=== PATIENT | female | born 1955 | race Caucasian/White ===

== ENCOUNTER → 2017-08-09 | Outpatient (CLI) | payer OTHER ==
[2017-08-09 11:17] LABS: AUTOMATED NEUTROPHIL # 3.4 TH/MM3 (1.8-7.7); BASOPHIL # 0.1 TH/MM3 (0-0.2); BASOPHIL % 1.2 % (0.0-2.0); EOSINOPHIL # 0.2 TH/MM3 (0-0.4); EOSINOPHIL % 3.8 % (0.0-4.0); HEMATOCRIT 37.2 % (35.0-46.0); HEMO FLAGS DIFF FINAL; HEMOGLOBIN 12.7 GM/DL (11.6-15.3); LYMPH % 30.4 % (9.0-44.0); LYMPHOCYTE # 1.8 TH/MM3 (1.0-4.8); MEAN CELL VOLUME 83.3 FL (80.0-100.0); MEAN CORPUSCULAR HEMOGLOBIN 28.4 PG (27.0-34.0); MEAN CORPUSCULAR HGB CONC 34.1 % (32.0-36.0); MEAN PLATELET VOLUME 6.7 FL (7.0-11.0); MONO % 8.2 % (0.0-8.0); MONOCYTE # 0.5 TH/MM3 (0-0.9); NEUT % 56.4 % (16.0-70.0); PLATELET COUNT 327 TH/MM3 (150-450); RED BLOOD COUNT 4.47 MIL/MM3 (4.00-5.30); RED CELL DISTRIBUTION WIDTH 13.2 % (11.6-17.2)
[2017-08-09 11:44] LABS: ALBUMIN 4.3 GM/DL (3.4-5.0); ANION GAP 6 MEQ/L (5-15); AST (GOT) 17 U/L (15-37); BACTERIA, URINE OCC /hpf; BICARBONATE 27.8 MEQ/L (21.0-32.0); BILIRUBIN, URINE NEG (NEG); BLOOD UREA NITROGEN 14 MG/DL (7-18); BLOOD, URINE NEG (NEG); CHLORIDE 103 MEQ/L (98-107); COMMENT (UR) CULT NOT INDICATED; CREATININE 0.79 MG/DL (0.50-1.00); CULTURE IF INDICATED CULT NOT INDICATED; GLOMERULAR FILTRATION RATE 74 ML/MIN (>89); GLUCOSE,FASTING 88 MG/DL (74-99); GLUCOSE,URINE NEG (NEG); KETONE, URINE NEG (NEG); MUCUS URINE FEW /lpf (OCC); NITRITE,URINE NEG (NEG); POTASSIUM 4.2 MEQ/L (3.5-5.1); SODIUM (NA) 137 MEQ/L (136-145); SQUAMOUS EPITHELIAL CELL URINE <1 /hpf (0-5); URINE COLOR LIGHT-YELLOW (YELLW/STRAW); URINE LEUKOCYTE ESTERASE NEG (NEG)
[2017-08-09 11:48] LABS: ALKALINE PHOSPHATASE 58 U/L (45-117); ALT (GPT) 30 U/L (10-53); TOTAL BILIRUBIN ADULT 0.2 MG/DL (0.2-1.0); TOTAL PROTEIN 8.2 GM/DL (6.4-8.2)
== END ==
LOC: CPRE 10:14
DX: Z01.810 Encounter for preprocedural cardiovascular examination (principal); Z01.812 Encounter for preprocedural laboratory examination; N39.3 Stress incontinence (female) (male)
CPT/HCPCS: 36415; 80053; 81001; 85025; 93005

== ENCOUNTER → 2017-08-15 | Day surgery (SDC) | payer OTHER ==
[~2017-08-15] MED LIST: ACETAMINOPHEN 1000 MG/100 ML 100 ML IV; DEXAMETHASONE SOD PHOS 4 MG/ML VIAL IV; DO NOT ADM ANY ANTICOAGULANT DRUGS; GLYCOPYRROLATE 1 MG/5 ML SYRINGE IV PUSH; KETOROLAC TROMETHAMINE 30 MG/ML (IVP) VIAL IV PUSH; LACTATED RINGER'S 1000 ML INJ 1,000 ML IV; LIDOCAINE HCL 1% PF 5 ML SYRINGE OTHER; METOPROLOL TARTRATE 25 MG TAB PO; MIDAZOLAM HCL 2 MG/2 ML VIAL; NEOSTIGMINE 5 MG/5 ML SYRINGE IV PUSH; ONDANSETRON HCL 4 MG/2 ML VIAL IV; ONDANSETRON HCL 4 MG/2 ML VIAL IV PUSH; PHENYLEPH/NS 1000 MCG/10 ML SYR IV; PROPOFOL 200 MG/20 ML AMP IV; ROCURONIUM INJ 50 MG/5 ML SYRINGE IV PUSH; SODIUM CHLORID 0.9% 500 ML IV; ePHEDrine/NS 25 MG/5 ML SYRINGE IV; traMADol HCL 50 MG TAB PO
[2017-08-15] MEDS: CHLORHEXIDINE GLUCONATE 2 % 1 PACK (2 CLOTHS) TOPICAL (07:30)
[2017-08-15] MEDS: APREPITANT 40 MG CAP (07:42)
[2017-08-15] MEDS: POVIDONE IODINE 5% (ANTISEPSIS KIT) 4 APPLICATIONS EACH NARE (08:00)
[2017-08-15] MEDS: LACTATED RINGER'S 1000 ML IV (08:12)
[2017-08-15] MEDS: ceFAZolin 2 GM PREMIX 50 ML IV (08:12)
[2017-08-15] MEDS: LIDOCAINE 2%/EPINEPHrine PF 1:200,000 20ML SDV ×2 (08:47)
== END | disposition home or self-care (01) ==
LOC: HSDC 07:10
DX: N39.3 Stress incontinence (female) (male) (principal); N81.11 Cystocele, midline; I10 Essential (primary) hypertension; E03.9 Hypothyroidism, unspecified; E78.00 Pure hypercholesterolemia, unspecified
CPT/HCPCS: 00860